=== PATIENT | female | born 1980 | race Caucasian/White ===

== ENCOUNTER 2024-01-05 16:09 | Emergency (ER) | payer OTHER, SELFPAY ==
[2024-01-05 16:13] VITALS: BP 143/82
--- NOTE | 2024-01-05 16:15 | ED.SKININJ ---
HPI-Injury
General
Chief Complaint: Blood and Body Fluid Exposure
Source: patient
Exam Limitations: none
Nursing documentation reviewed up to this point in time: agreed with
History of Present Illness-Injury
Initial Injury comments:
HPI: 43 yo female with history of Hep C from getting tattoos, today at [facility], was picking up spilled garbage, when she picked it up she was stuck in the pad of right index finger at 3:15 p.m. wiyth a used Insulin needle.
[place] whose [place] it was [place] [facility] [place] Provider Triage
-
Patient seen by provider in Triage?: Seen in Triage
Attestation: A medical screening examination has been initiated by a qualified medical provider. Based on the assessment performed at this time, it has been determined that an emergent medical condition may exist and the patient has been informed
that further medical evaluation and possible additional diagnostic testing may be needed.
HPI: 43 yo female with history of Hep C from getting tattoos, today at [facility], was picking up spilled garbage, when she picked it up she was stuck in the pad of right index finger at 3:15 p.m. wiyth a used Insulin needle.
The person whose needle it was is known by the [facility].
GENERAL: Alert , in no apparent distress
EYE: No visual abnormalities.
ENT: No visible abnormalities.
LUNGS: No acute respiratory distress
NEUROLOGICAL: Alert and oriented
SKIN: Skin intact. No visible changes. No visible puncture on finger
MUSCULOSKELETAL: Moving extremities normally
PSYCH: Normal and appropriate interaction.
This is a medical evaluation conducted in person to initiate diagnostic evaluation and provide initial therapeutics. Please see further documentation by the treating clinician.
Past History
Past History
ED Past Medical History: Other (Left rotator cuff injury, Vertigo, Hep C); Negative Asthma, HTN, Hypercholesterolemia or NIDDM
ED Past Surgical History: ( X 1) and Orthopedic
Social History
Tobacco: Former smoker
Alcohol: None
Drug: None
Personal:
Living: with family
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
Family History
Family History: CAD (Father, onset age 40.)
Review of Systems
Review of Systems
Allergies reviewed?: Yes
All Other Systems: ROS reviewed and negative except as documented in HPI and ROS
Skin: Reports other (needlestick right index finger )
Phy Exam
Physical Exam
Physical Exam:
PHYSICAL EXAMINATION:
General: no apparent distress, not acutely ill
Neuro: alert and oriented.
Psychiatric: well kept. interactive and cooperative
Musculoskeletal: Moves with ease
Skin: Warm, pink. No obvious puncture to the right index finger pad. Skin appear normal.
Course
Orders/Labs/Results
Orders:
Orders
01/05/24 16:20
Pt has had a significant HIV exposure? Routine
HIV Exposure is significant?: Yes
Comment: used SQ insulin needled
01/05/24 16:22
Tetanus/Diphth/Acelpertussis [Adacel] 0.5 ml IM .ONCE ONE
01/05/24 16:32
HIV Combo Urgent
Comment: ADD ON
Hepatitis B Surface Antibody Urgent
Hepatitis B Surface Antigen Urgent
Hepatitis C Antibody Urgent
Vital Signs
Initial and Last Documented VS:
Initial Vital Signs
Temp Pulse Resp BP Pulse Ox
97.9 F 75 16 143/82 100
01/05/24 16:13 01/05/24 16:13 01/05/24 16:13 01/05/24 16:13 01/05/24 16:13
Last Documented Vital Signs
Temp Pulse Resp BP Pulse Ox
97.9 F 75 16 143/82 100
01/05/24 16:13 01/05/24 16:13 01/05/24 16:13 01/05/24 16:13 01/05/24 16:13
MDM/Problems Addressed
MDM/Problems Addressed:
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 [facility] used Insulin needle.
The person whose needle it was is known by the school district. Pt will have her employer contact the school to inquire about source [id number]
Lengthy discussion with patient re: the benefits versus complications of receiving PEP for this relatively minor needlestick to the pad of her right index finger, no obvious puncture noted, skin is normal. Needle has been out in the air, it is an
insulin subq needle and the risk of disease transmission is extremely low.
Shared decision making was used and no PEP will be given.
PEP labs drawn. She will have repeat lab work in 6 weeks.
*Critical Care Note
Total Time (30-74mins, 75-104mins- exclusive of procedures): Not Applicable
ED Attending Note
-
Portions of this chart may have been created with voice recognition software.� Occasional wrong word or��sound alike� substitutions may have occurred due to the inherent limitations of voice recognition software.
Discharge Plan
Departure
Patient Disposition: Home (Routine Discharge)
Date of Disposition: 01/05/24
Time of Disposition: 16:29
Patient with high blood pressure during this ER visit?: No
Condition: Good
Discharge Problem:
Needlestick injury of finger
Instructions: Blood or body fluid exposure
Prescriptions:
No Action
meclizine 25 MG tablet
25 mg PO QIDPRN PRN (Reason: dizziness or nausea) Qty: 25 0RF
promethazine-codeine 5 ML syrup
5 ml PO Q4HPRN PRN (Reason: Cough) Qty: 120 0RF
Rx Instructions:
May take 10ml as needed for cough
prednisone 20 mg tablet
60 mg PO DAILY 7 Days Qty: 21 0RF
Stand Alone Forms: Bl/Fluid Consent/Declination
Activity Restrictions/Additional Instructions:
As we discussed, you have opted to not get the post exposure medications, this is reasonable as this is a relativedly superficial stick from a very small bore needle that has been exposed to air and the source person is known
You may ask your employer to inquire if the source person has any major illness besides diabetes.
'You should have repeat test for HIV in 6 weeks. I
Interventions
Interventions:
*Risk Screen - Suicide Last Done: 01/05/24 16:14
*General Assessment Last Done: 01/05/24 16:39
*Neglect/Abuse Screening Last Done: 01/05/24 16:14
ED- Fall Risk Assessment Last Done: 01/05/24 16:39
*ED COVID-19 Vaccine History Last Done: 01/05/24 16:14
*Nursing Disposition Last Done: 01/05/24 16:39
ED-EENT Assessment Last Done: 01/05/24 16:40
ED-Skin Assessment Last Done: 01/05/24 16:40
Discharge Date and Time
Discharge Date/Time: 01/05/24 16:40
Print Language: BOTSWANAN
[2024-01-05] MEDS: ADACEL 0.5 ML IM (16:26)
[2024-01-05 17:37] LABS: Hepatitis B Surface Antigen Negative (Negative)
[2024-01-05 17:54] LABS: Hepatitis B Surface Antibody Positive; Hepatitis C Antibody Negative (Negative)
[2024-01-05 22:04] LABS: HIV Combo Negative (Negative)
== END 2024-01-05 16:40 | disposition home or self-care (01) ==
LOC: EMR 16:09
PROVIDERS: EMERGENCY PHYSICIAN Registered Nurse; FAMILY PHYSICIAN Family Medicine
DX: S60.940A Unspecified superficial injury of right index finger, initial encounter (principal); W46.1XXA Contact with contaminated hypodermic needle, initial encounter; Y99.0 Civilian activity done for income or pay; Z86.19 Personal history of other infectious and parasitic diseases; Z87.891 Personal history of nicotine dependence; Z23 Encounter for immunization
CPT/HCPCS: 90471; 99283; 86706; 86803; 87340; 87389; 90715

== ENCOUNTER 2024-02-08 23:50 | Emergency (ER) | payer BC, SELFPAY ==
[2024-02-08 23:52] VITALS: BP 152/80
[2024-02-09 01:00] VITALS: BP 157/70
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
== END 2024-02-09 01:38 | disposition home or self-care (01) ==
LOC: EMR 23:50
PROVIDERS: EMERGENCY PHYSICIAN Student in an Organized Health Care Education/Training Program; FAMILY PHYSICIAN Family Medicine
DX: F41.9 Anxiety disorder, unspecified (principal); R03.0 Elevated blood-pressure reading, without diagnosis of hypertension; M79.7 Fibromyalgia; Z63.0 Problems in relationship with spouse or partner; F32.A Depression, unspecified; F43.10 Post-traumatic stress disorder, unspecified; Z87.891 Personal history of nicotine dependence
CPT/HCPCS: 99282

== ENCOUNTER 2024-03-28 14:32 | Emergency (ER) | payer BC, SELFPAY ==
[2024-03-28 14:36] VITALS: BP 109/83
--- NOTE | 2024-03-28 16:33 | ED.GENMED ---
History of Present Illness
General
Chief Complaint: Skin Surface Trauma
Source: patient
Exam Limitations: none
Time Seen by Provider: 03/28/24 15:40
Nursing documentation reviewed up to this point in time: agreed with
History of Present Illness
History of Present Illness:
pt is a 43 y/o F with L hand dominance
here with L middle finger wound from kitchen knife when she accidentally stabbed herself when she reached in the kitchen drawer today
no numbness/tingling/weakness
able to flex the finger
bleeding controlled
tetanus UTD
Past History
Past History
ED Past Medical History: Fibromyalgia, Hypercholesterolemia, Psychiatric (PTSD, Anxiety, Depression) and Other (Left rotator cuff injury, Vertigo, Hep C, Degenerative disc disease); Negative Asthma, HTN or NIDDM
ED Past Surgical History: ( X 1) and Orthopedic (wrist surgery. facial surgery)
Social History
Tobacco: Former smoker
Alcohol: None
Drug: None
Personal:
Living: with family
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
Family History
Family History: CAD (Father, onset age 40.)
Review of Systems
Review of Systems
Allergies reviewed?: Yes
All Other Systems: Not applicable
Phy Exam
Physical Exam
Physical Exam:
GENERAL: Alert , in no apparent distress
cv: L radial pulse 2+
cap refill intact L 3rd finger
NEUROLOGICAL: Alert and oriented, no focal neuro deficits
SKIN: Warm and dry, 0.75 cm laceration to palmar aspect of distal 3rd phalanx
bleedin controlled
MUSCULOSKELETAL: mild STS of the distal 3rd L finger
full rom
PSYCH: Normal and appropriate interaction.
Course
Vital Signs
Initial and Last Documented VS:
Initial Vital Signs
Temp Pulse Resp BP Pulse Ox
37.1 C 65 18 109/83 100
03/28/24 14:36 02/16/25 14:36 03/28/24 14:36 03/28/24 14:36 03/28/24 14:36
Last Documented Vital Signs
Temp Pulse Resp BP Pulse Ox
37.1 C 65 18 109/83 100
03/28/24 14:36 03/28/24 14:36 03/28/24 14:36 03/28/24 14:36 03/28/24 14:36
Procedures
Laceration Closure
Left Third Finger(s):
Status of Wound: clean
Size of Wound in cm: 0.75
Description of Wound Edges: sharp
Preparation: cleaned with saline
Anesthesia: 1% Lidocaine and Digital-Regional
Revision/Debridement: routine- no revision and irrigate-direct pressure
Type of Closure: single layer closure
Skin Closure Material: 5-0 nylon
Number of sutures: 1
MDM/Problems Addressed
Differential Diagnosis Includes:
laceration, contusion, puncture, sprain
MDM/Problems Addressed:
43 y/o F L hand dominance
here with L middle finger wound by knife today when she accidentally stabbed it with a knife
bleeding controlled
no deficits to sneesation or function
teatnus utd
anesthetized, irrigated
*Critical Care Note
Total Time (30-74mins, 75-104mins- exclusive of procedures): Not Applicable
ED Attending Note
-
Portions of this chart may have been created with voice recognition software.� Occasional wrong word or��sound alike� substitutions may have occurred due to the inherent limitations of voice recognition software.
Discharge Plan
Departure
Patient Disposition: Home (Routine Discharge)
Date of Disposition: 03/28/24
Time of Disposition: 17:02
Patient with high blood pressure during this ER visit?: No
Discharge Problem:
Finger laceration
Instructions: Laceration Repair With Stitches (DC)
Prescriptions:
No Action
meclizine 25 MG tablet
25 mg PO QIDPRN PRN (Reason: dizziness or nausea) Qty: 25 0RF
promethazine-codeine 5 ML syrup
5 ml PO Q4HPRN PRN (Reason: Cough) Qty: 120 0RF
Rx Instructions:
May take 10ml as needed for cough
prednisone 20 mg tablet
60 mg PO DAILY 7 Days Qty: 21 0RF
Referrals:
Juan C Oneil, [Family Provider] - Follow up in 1 week
Activity Restrictions/Additional Instructions:
KEEP THE WOUND CLEAN AND DRY FOR 24 HOURS
AFTER THAT YOU CAN GET IT WET IN THE BATH/SHOWER ONCE A DAY AND MAKE SURE IT IS CLEAN AND THERE IS NO DRIED BLOOD ON THE STITCHES
APPLY NEOSPORIN AND A BANDAID
THE STITCHES NEED TO BE REMOVED IN ABOUT 7-10 DAYS, SEE YOUR DOCTOR FOR THIS.
THE LAST DAY BEFORE STITCHES OUT, NO OINTMENT, LEAVE OPEN TO AIR
WATCH FOR SIGNS OF INFECTION AND RETURN NEEDED FOR PAIN, SWELLING, REDNESS, DRAINAGE, BLEEDING.
MOTRIN NEEDED FOR PAIN.
Interventions
Interventions:
*Risk Screen - Suicide Last Done: 03/28/24 16:00
*General Assessment Last Done: 03/28/24 16:00
*Neglect/Abuse Screening Last Done: 03/28/24 16:00
ED- Fall Risk Assessment Last Done: 03/28/24 16:00
*ED COVID-19 Vaccine History Last Done: 03/28/24 16:00
*Nursing Disposition Last Done: 03/28/24 17:00
ED-Skin Assessment Last Done: 03/28/24 16:00
Discharge Date and Time
Discharge Date/Time: 03/28/24 17:00
Print Language: ROMANIAN
== END 2024-03-28 17:00 | disposition home or self-care (01) ==
LOC: EMR 14:32
PROVIDERS: EMERGENCY PHYSICIAN Student in an Organized Health Care Education/Training Program; FAMILY PHYSICIAN Family Medicine
DX: S61.213A Laceration without foreign body of left middle finger without damage to nail, initial encounter (principal); W26.0XXA Contact with knife, initial encounter; M79.7 Fibromyalgia; E78.00 Pure hypercholesterolemia, unspecified; Z86.19 Personal history of other infectious and parasitic diseases; Z87.891 Personal history of nicotine dependence
CPT/HCPCS: 12001; 99282

== ENCOUNTER 2024-09-28 13:36 | Emergency (ER) | payer BC, SELFPAY ==
[2024-09-28 13:37] VITALS: BP 154/90
--- NOTE | 2024-09-28 13:51 | ED.SKININJ ---
HPI-Injury
<Mendy Arroyo MD, Resident - Last Filed: 09/28/24 14:58>
General
Chief Complaint: Skin Surface Trauma
Source: patient
Time Seen by Provider: 09/28/24 13:51
Nursing documentation reviewed up to this point in time: agreed with
History of Present Illness-Injury
Initial Injury comments:
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 The blade went deep into her thumb but did not go through to the other side. Thumb was bleeding
profusely but she put pressure on it and has been managed since. Wound is pretty clean with no jagged edges. Reports that she does have some numbness in the tip of the thumb but no tingling. Does not report any fever or chills, shortness of breath
chest pain. Patient up-to-date with tetanus shot, had 6 months ago.
Past History
<Mendy Arroyo MD, Resident - Last Filed: 09/28/24 14:58>
Past History
ED Past Medical History: Fibromyalgia, Hypercholesterolemia, Psychiatric (PTSD, Anxiety, Depression) and Other (Left rotator cuff injury, Vertigo, Hep C, Degenerative disc disease); Negative Asthma, HTN or NIDDM
ED Past Surgical History: ( X 1) and Orthopedic (wrist surgery. facial surgery)
Social History
Tobacco: Former smoker
Alcohol: None
Drug: None
Personal:
Living: with family
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
Family History
Family History: CAD (Father, onset age 40.)
Review of Systems
<Mendy Arroyo MD, Resident - Last Filed: 09/28/24 14:58>
Review of Systems
Allergies reviewed?: Yes
All Other Systems: ROS reviewed and negative except as documented in HPI and ROS
Constitutional: Reports no symptoms
EENT: Reports no symptoms
Respiratory: Reports no symptoms
Cardiac: Reports no symptoms
ABD/GI: Reports no symptoms
: Reports no symptoms
Musculoskeletal: Reports other (Pain around site of cut)
Skin: Reports other (3 cm cut left thumb)
Skin Exam
<Mendy Arroyo MD, Resident - Last Filed: 09/28/24 14:58>
Laceration
Left First Finger:
Length in cm: 3
Orientation: horizontal
Type of Laceration: simple
Any active bleeding?: low grade venous oozing
Distal skin color and temperature: normal-warm & good color
Normal distal neurovascular exam: Yes
Range of motion: full
Phy Exam
<Mendy Arroyo MD, Resident - Last Filed: 09/28/24 14:58>
General Physical Exam
General Presentation: well appearing and mild distress
General Skin: warm and dry
General Habitus: normal
General Mental: alert
Musculoskeletal Exam
Musculoskeletal Exam: other (Left thumb 3 cm cut)
Skin Exam
Skin Exam: normal color and warm/dry
Course
<Mendy Arroyo MD, Resident - Last Filed: 09/28/24 14:58>
Vital Signs
Initial and Last Documented VS:
Initial Vital Signs
Temp Pulse Resp BP Pulse Ox
98.0 F 100 18 154/90 100
09/28/24 13:37 09/28/24 13:37 09/28/24 13:37 09/28/24 13:37 09/28/24 13:37
Last Documented Vital Signs
Temp Pulse Resp BP Pulse Ox
98.0 F 100 18 154/90 100
09/28/24 13:37 09/28/24 13:37 09/28/24 13:37 09/28/24 13:37 09/28/24 13:52
<Patricio Hoang, DO - Last Filed: 09/28/24 14:58>
Vital Signs
Initial and Last Documented VS:
Initial Vital Signs
Temp Pulse Resp BP Pulse Ox
98.0 F 100 18 154/90 100
09/28/24 13:37 09/28/24 13:37 09/28/24 13:37 09/28/24 13:37 09/28/24 13:37
Last Documented Vital Signs
Temp Pulse Resp BP Pulse Ox
98.0 F 100 18 154/90 100
09/28/24 13:37 09/28/24 13:37 09/28/24 13:37 09/28/24 13:37 09/28/24 13:52
Procedures
<Mendy Arroyo MD, Resident - Last Filed: 09/28/24 14:58>
Laceration Closure
Left First Finger:
Status of Wound: clean
Size of Wound in cm: 3
Description of Wound Edges: sharp
Preparation: cleaned with saline
Type of Closure: Dermabond-skin glue
<Mendy Arroyo MD, Resident - Last Filed: 09/28/24 14:58>
MDM/Problems Addressed
Differential Diagnosis Includes:
Left thumb laceration
MDM/Problems Addressed:
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
On examination, laceration was around 3cm long, horizontal, with sharp edges. Was able to be closed well. Patient reported some numbing of the tip of the thumb. Used Dermabond glue to glue the laceration closed and then put a thumb splint once glue
was dry. Patient given instructions to not do any heavy lifting/property custodian work for at least a week. She should keep the glued area dry for atleast 48 hours.
<Mendy Arroyo MD, Resident - Last Filed: 09/28/24 14:58>
*Pulse Oximetry
SaO2: 100
Oxygen Mode of Delivery: Room air
Patient hypoxic: no
*Critical Care Note
Total Time (30-74mins, 75-104mins- exclusive of procedures): Not Applicable
ED Attending Note
<Mendy Arroyo MD, Resident - Last Filed: 09/28/24 14:58>
-
Portions of this chart may have been created with voice recognition software.� Occasional wrong word or��sound alike� substitutions may have occurred due to the inherent limitations of voice recognition software.
<Patricio Hoang, DO - Last Filed: 09/28/24 14:58>
ED Attending Note
Patient seen and examined by attending physician: Yes
I performed a history and physical exam of patient and discussed management with resident, I reviewed resident's note and agree with documented findings and plan of care.: Yes
ED Attending Note:
I reviewed and agree with history and plan by Mendy Arroyo MD. My exam revealed 44-year-old female with 3 cm laceration left thumb. Repaired with Dermabond splinted tetanus up-to-date. Patient stable for discharge.
Discharge Plan
Departure
Patient with high blood pressure during this ER visit?: Yes
Condition: Good
Covid-19: Not Applicable
Discharge Problem:
Laceration of left thumb
Instructions: Laceration Repair With Glue (DC), Wound Care (DC)
Prescriptions:
No Action
meclizine 25 MG tablet
25 mg PO QIDPRN PRN (Reason: dizziness or nausea) Qty: 25 0RF
promethazine-codeine 5 ML syrup
5 ml PO Q4HPRN PRN (Reason: Cough) Qty: 120 0RF
Rx Instructions:
May take 10ml as needed for cough
prednisone 20 mg tablet
60 mg PO DAILY 7 Days Qty: 21 0RF
Referrals:
Juan C Oneil DO [Family Provider, Family Practice]
Activity Restrictions/Additional Instructions:
As discussed, please do not do any heavy lifting/property custodian work for at least a week. You should keep the glued area dry for at least 48 hours as it heals.
If you develop any worsening pain, increased bleeding, fevers or chills please return to the ED for further evaluation.
Interventions
Interventions:
*Risk Screen - Suicide Last Done: 09/28/24 13:37
*General Assessment Last Done: 09/28/24 13:37
ED-Skin Assessment Last Done: 09/28/24 13:53
Discharge Date and Time
Print Language: ARMENIAN
== END 2024-09-28 15:16 | disposition home or self-care (01) ==
LOC: EMR 13:36
PROVIDERS: EMERGENCY PHYSICIAN Emergency Medicine; FAMILY PHYSICIAN Family Medicine
DX: S61.012A Laceration without foreign body of left thumb without damage to nail, initial encounter (principal); W26.0XXA Contact with knife, initial encounter; Y99.0 Civilian activity done for income or pay; E78.00 Pure hypercholesterolemia, unspecified; M79.7 Fibromyalgia; F43.10 Post-traumatic stress disorder, unspecified; F41.9 Anxiety disorder, unspecified; F32.A Depression, unspecified; B19.20 Unspecified viral hepatitis C without hepatic coma; M51.9 Unspecified thoracic, thoracolumbar and lumbosacral intervertebral disc disorder; Z87.891 Personal history of nicotine dependence; Z82.49 Family history of ischemic heart disease and other diseases of the circulatory system
CPT/HCPCS: 99282; 12002

== ENCOUNTER 2024-09-29 11:14 | Emergency (ER) | payer SELFPAY ==
[2024-09-29 11:23] VITALS: BP 139/83
[2024-09-29] MEDS: LET TOPICAL ANESTHETIC GEL 3 ML TOPICAL (12:05)
--- NOTE | 2024-09-29 12:49 | ED.GENMED ---
History of Present Illness
General
Chief Complaint: Wound Check/Suture Removal
Time Seen by Provider: 09/29/24 11:41
History of Present Illness
History of Present Illness:
44-year-old female presents for evaluation of a bleeding wound to the left thumb. She was seen in this emergency department yesterday after cutting her thumb with a box car bracer, glue was applied however the glue rapidly dissolved off the finger.
Past History
Past History
ED Past Medical History: Fibromyalgia, Hypercholesterolemia, Psychiatric (PTSD, Anxiety, Depression) and Other (Left rotator cuff injury, Vertigo, Hep C, Degenerative disc disease); Negative Asthma, HTN or NIDDM
ED Past Surgical History: ( X 1) and Orthopedic (wrist surgery. facial surgery)
Social History
Tobacco: Former smoker
Alcohol: None
Drug: None
Personal:
Living: with family
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
Family History
Family History: CAD (Father, onset age 40.)
Review of Systems
Review of Systems
Allergies reviewed?: Yes
All Other Systems: ROS reviewed and negative except as documented in HPI and ROS
Phy Exam
Physical Exam
Physical Exam:
GEN: Well appearing, NAD, WDWN
HEENT: Oral mucosa moist, no scleral icterus
Cardiac: Regular rate
Lung: No respiratory distress, no tachypnea
MSK: No gross deformity or injuries
Skin: Good color, no pallor or jaundice, no rashes. 2 cm linear laceration transversely across the left thumb pad with no active bleeding
Neuro: AO x3, moves all extremities freely
Psych: Calm, cooperative
Course
Orders/Labs/Results
Orders:
Orders
09/29/24 11:46
Lidocaine/Epinephrine/Tetracai [Let Topical Anesthetic Gel] 3 ml TOPICAL NOW STA
Vital Signs
Initial and Last Documented VS:
Initial Vital Signs
Temp Pulse Resp BP Pulse Ox
98.2 F 67 18 139/83 100
09/29/24 11:23 09/29/24 11:23 09/29/24 11:23 09/29/24 11:23 09/29/24 11:23
Last Documented Vital Signs
Temp Pulse Resp BP Pulse Ox
98.2 F 67 18 139/83 100
09/29/24 11:23 09/29/24 11:23 09/29/24 11:23 09/29/24 11:23 09/29/24 12:51
Procedures
Laceration Closure
Left thumb:
Status of Wound: clean
Size of Wound in cm: 2
Description of Wound Edges: sharp
Preparation: cleaned with saline
Anesthesia: 1% Lidocaine and Topical-LET
Wound exploration: explored to base- no FB and no tendon involvement
Type of Closure: single layer closure
Skin Closure Material: 5-0 prolene
Number of sutures: 4
MDM/Problems Addressed
MDM/Problems Addressed:
Wound closed at the bedside, discussed with patient slight increased risk of infection given delayed closure however the wound is quite amenable to closure at this point
*Pulse Oximetry
SaO2: 100
Oxygen Mode of Delivery: Room air
Patient hypoxic: no
*Critical Care Note
Total Time (30-74mins, 75-104mins- exclusive of procedures): Not Applicable
ED Attending Note
-
Portions of this chart may have been created with voice recognition software.� Occasional wrong word or��sound alike� substitutions may have occurred due to the inherent limitations of voice recognition software.
Discharge Plan
Departure
Patient Disposition: Home (Routine Discharge)
Date of Disposition: 09/29/24
Time of Disposition: 12:50
Patient with high blood pressure during this ER visit?: No
Discharge Problem:
Laceration of left thumb
Instructions: Stitches - ED (DC)
Prescriptions:
No Action
meclizine 25 MG tablet
25 mg PO QIDPRN PRN (Reason: dizziness or nausea) Qty: 25 0RF
promethazine-codeine 5 ML syrup
5 ml PO Q4HPRN PRN (Reason: Cough) Qty: 120 0RF
Rx Instructions:
May take 10ml as needed for cough
prednisone 20 mg tablet
60 mg PO DAILY 7 Days Qty: 21 0RF
Referrals:
Juan C Oneil DO [Family Provider, Family Practice]
Activity Restrictions/Additional Instructions:
Keep dry for next 24 hours
Clean each day with soap and water thereafter
Suture removal in 7 days
Interventions
Interventions:
*Risk Screen - Suicide Last Done: 09/29/24 11:23
*General Assessment Last Done: 09/29/24 11:23
*Neglect/Abuse Screening Last Done: 09/29/24 11:23
*Nursing Disposition Last Done: 09/29/24 12:58
ED-Skin Assessment Last Done: 09/29/24 11:29
Discharge Date and Time
Discharge Date/Time: 09/29/24 12:58
Print Language: GAMBIAN
== END 2024-09-29 12:58 | disposition home or self-care (01) ==
LOC: EMR 11:14
PROVIDERS: EMERGENCY PHYSICIAN Emergency Medicine; FAMILY PHYSICIAN Family Medicine
DX: S61.012A Laceration without foreign body of left thumb without damage to nail, initial encounter (principal); W45.8XXA Other foreign body or object entering through skin, initial encounter; M79.7 Fibromyalgia; E78.00 Pure hypercholesterolemia, unspecified; F43.10 Post-traumatic stress disorder, unspecified; Z82.49 Family history of ischemic heart disease and other diseases of the circulatory system; Z86.19 Personal history of other infectious and parasitic diseases; Z87.891 Personal history of nicotine dependence
CPT/HCPCS: 99282; 12001